=== PATIENT | male | born 1950 | race Caucasian/White ===

== ENCOUNTER → 2019-11-03 | Outpatient (CLI) | payer OTHER | LOC: GOCC 14:54 | PROVIDERS: ATTEND Internal Medicine | DX: R05 Cough (principal) ==

== ENCOUNTER 2020-01-02 18:33 | Emergency (ER) | payer OTHER ==
[2020-01-02] MEDS ORDERED: SODIUM CHLORIDE 0.9% 1000ML 1,000 ML IVS ONE (19:12)
[2020-01-02] MEDS ORDERED: PIPERACILLIN/TAZOBACTAM 3.375 GM in SODIUM CHLORIDE 0.9% 100ML 100 ML IVPB ONE (19:12)
[2020-01-02] MEDS ORDERED: ALBUTEROL SULFATE NEBS (ED DISPENSE) 2.5 MG/3 ML VIAL NEB PRN (19:12)
[2020-01-02] MEDS ORDERED: methylPREDNISolone SODIUM SUC 125 MG/2 ML VIAL IV ONE (19:12)
[2020-01-02] MEDS ORDERED: IPRATROPIUM BROMIDE NEBS 0.5 MG/2.5 ML VIAL NEB ONE (19:12)
--- NOTE | 2020-01-02 19:16 | ED.PDOC ---
History of Present Illness - General Time Seen by Provider: 01/02/20 19:02 Additional Information: Patient is a 6-year-old male who presents to the ED via EMS from a [facility] with chief complaint of generalized weakness. Patient has dementia and is weak in general but per EMS [facility] staff says he is more weak recently. By report patient has no fever or chills. Patient is not really able to contribute meaningfully to his history and history is otherwise unknown. - History of Present Illness Home Medications: Ambulatory Orders Acetaminophen [Tylenol] 650 mg PO Q6H #50 tab 01/02/20 Albuterol Inhaler [Ventolin Hfa Inhaler] 2 puff INH Q4H PRN #1 inh 01/02/20 Azithromycin [Zithromax Z-Pravin] 250 mg PO DAILY #6 tab 01/02/20 Review of Systems - Review of Systems Unable to Obtain Due To: dementia Family Medical History - Family History Mother Family History: Unknown Living Status: Unknown Physical Exam - Physical Exam General Appearance: Alert, Comfortable, Frail, Other - Generally weak Neck: supple Respiratory: chest non-tender, respiratory distress - Mild, rhonchi - Bilaterally, wheezing - Mild bilaterally Cardiovascular/Chest: normal peripheral pulses, no edema, no gallop, tachycardia, other - Regular rhythm Gastrointestinal/Abdominal: normal bowel sounds, non tender, soft Extremity: normal range of motion, non-tender, normal inspection 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 Confused but follows simple commands. Skin Exam: normal color, warm/dry Progress - Progress Progress: 01/02/20 19:17 Differential diagnosis includes but is not limited to sepsis, COVID, pneumonia, PE. 01/02/20 21:25 Patient reassessed and is much improved from his initial presentation. Patient is breathing easily, his heart rate is in the low 100s, and his O2 sat is 93 to 94% on room air. Patient's chest x-ray was read as clear but patient does have a low-grade fever and clinically I suspect pneumonia and possibly viral pneumonia from COVID. Cover test is pending. Patient has been covered with Zosyn in the ED and he is safe for discharge back to the [facility] on azithromycin and albuterol inhalers. Departure - Departure Clinical Impression: Pneumonia, unspecified organism, Suspected COVID-19 virus infection Time of Disposition: 21:29 Disposition: Discharge to SNF Condition: Fair Instructions: Pneumonia in Adults, Coronavirus Disease 2019 (COVID-19) Prescriptions: Acetaminophen [Tylenol] 650 mg PO Q6H #50 tab Albuterol Inhaler [Ventolin Hfa Inhaler] 2 puff INH Q4H PRN #1 inh PRN Reason: Shortness Of Breath/Wheezing Azithromycin [Zithromax Z-Pravin] 250 mg PO DAILY #6 tab Home Medications: Ambulatory Orders Acetaminophen [Tylenol] 650 mg PO Q6H #50 tab 01/02/20 Albuterol Inhaler [Ventolin Hfa Inhaler] 2 puff INH Q4H PRN #1 inh 01/02/20 Azithromycin [Zithromax Z-Pravin] 250 mg PO DAILY #6 tab 01/02/20
[2020-01-02] MEDS ORDERED: ALBUTEROL SULFATE 2.5 MG/3 ML VIAL NEB ONE (19:27)
--- NOTE | 2020-01-02 20:12 | RAD ---
EXAM DESCRIPTION: Chest,1 View CLINICAL HISTORY: 69 years Male, SOB COMPARISON: None. FINDINGS: No consolidation. No pneumothorax. No significant pleural effusion. Cardiomediastinal silhouette is unremarkable. There are age indeterminate fractures of posterolateral left ribs five through eight. Old left clavicle fracture noted. Degenerative changes of the spine noted. IMPRESSION: 1. No acute cardiopulmonary process. 2. Age-indeterminate left rib fractures. Electronically signed by: Derrick Espinoza MD 01/02/2020 8:11 PM CDT
[2020-01-03 03:43] VITALS: BP 151/74; TEMP 98.1; O2SAT 94
== END 2020-01-02 22:30 ==
LOC: ER 18:33
DX: J18.9 Pneumonia, unspecified organism (principal); R53.1 Weakness; F03.90 Unspecified dementia, unspecified severity, without behavioral disturbance, psychotic disturbance, mood disturbance, and anxiety
CPT/HCPCS: 36415; 71045; 80053; 83605; 84484; 85025; 85379; 87040; 94640; J2543; J2930; J7030; J7050; J7611; J7644; U0002

== ENCOUNTER 2020-01-03 18:56 | Inpatient (IN) | payer OTHER ==
--- NOTE | 2020-01-03 18:57 | HP ---
SUPERVISING PHYSICIAN: ABDELRAHMAN BURTON MD CHIEF COMPLAINT: Weakness, shortness of breath, fever. HISTORY OF PRESENT ILLNESS: Mr. Pollard is a 69 year-old male patient who resides at [facility]. He was brought to the Emergency Room initially on 01/28 with a chief complaint of generalized weakness. He denied any fever or chills. The patient has advanced dementia and is not able to contribute any meaningful history and otherwise does not tell us history medically the majority of the history of present illness obtained after Emergency Room record review and alf records. Initially in the Emergency Room on 01/01, his vital signs did show he was running a fever on initial admission at that time of 101, heart rate 118, oxygen saturation 88% on room air and is generally not 02 dependent. Initially laboratory studies at the time showed a white count of 5,000. Chest x-ray showed no acute cardiopulmonary process, age indeterminate left rib fractures. In the Emergency Room, he was tested for Covid-19 infection and was diagnosed with pneumonia but was found to be stable and was initially transported back to the alf. After a short time in the alf on the morning of 01/02, the patient was showing some evidence of desaturation, given the findings that he had in the Emergency Room and has pneumonia, he was sent back to the hospital after his testing came back that he was positive for Covid-19 for treatment of pneumonia related to Covid-19 infection. His workup at that time did show an elevated D-dimer at 2650 with initial D-dimer on 01/01 of 273. His chemistries showed a C-reactive protein elevated at 4.9, lactic acid 1.6. Electrolytes were all within normal limits. Creatinine 1.11. Troponin less than 0.02. X-ray at that time of direct admit from [facility] to the medical/surgical floor showed no acute cardiopulmonary process per radiology interpretation. Vital signs on admission at that time showed he was not running a fever but desaturation into the 80s on room air. He is now going to be admitted to the medical/surgical floor for treatment of pneumonia secondary to Covid-19, a viral infection. He was stable at time of admission. PAST MEDICAL HISTORY: 1. Dementia. 2. Bilateral blindness, etiology uncertain. Otherwise, history is not well known. PAST SURGICAL HISTORY: No surgeries listed other than an obvious colectomy with bag in place. Original reason for surgery not certain. CURRENT MEDICATIONS: 1. Zofran. 2. Multivitamin. 3. Robaxin. 4. Imodium. 5. Hydrocodone. 6. Gabapentin. 7. Colace. 8. Cymbalta. 9. Alphagan. 10. Lipitor. 11. Tylenol PM. 12. Albuterol inhaler. ALLERGIES: No known drug allergies. FAMILY HISTORY: Not known SOCIAL HISTORY: Resides at [facility]. No mention of tobacco or alcohol abuse. REVIEW OF SYSTEMS: Unobtainable due to patient's dementia. PHYSICAL EXAMINATION: VITAL SIGNS: Initial temperature in the Emergency Room showed he was febrile to 101 with pulse of 118, blood pressure 124/74, oxygen saturation 88% on room air with respirations 18. On direct admission to the medical/surgical floor he was afebrile with a temperature of 97.6, heart rate 108, blood pressure 118/52, oxygen saturation 88 to 90% on room air, 93% on the nasal cannula at 1 liter. GENERAL: Patient is frail looking but looks to be in no distress. He is alert, he can hold a conversation but does not provide pertinent information. HEENT: Tympanic membranes clear bilaterally. Oropharynx; pink and moist without lesions. Patient is blind bilaterally. NECK: Supple, non-tender, full range of motion, no jugular venous distention. CHEST: Sounds notable for mild rhonchi and bilateral wheezing, diminished towards the bases. CARDIOVASCULAR: Regular rate and rhythm, mildly tachycardiac on initial monitor. No murmurs, rubs, or gallops appreciated. ABDOMEN: Soft, non-tender, positive bowel sounds. Right sided colostomy bag with stoma appearing healthy, EXTREMITIES: Without edema. NEUROLOGIC: Cranial nerves II through XII appear to be grossly intact except for his vision as he is blind bilaterally. He is oriented to person but does not know time or place. He seems to be a little confused but he will follow basic simple commands. SKIN: Warm, pink and dry. LABORATORY: White count in the Emergency Room was 5,000, on admission to medical/surgical floor was 5,100, hemoglobin 12.1, hematocrit 36.8. Platelet count 269,000, differential showed a left shift. Coagulation studies initially in the Emergency Room showed a D-dimer at 273 on direct admission, repeat 2650. Chemistries initially in the Emergency Room showed normal electrolytes and on admission as well. Creatinine on admission 1.11, lactic acid 1.2 in the Emergency Room. Repeat on admission was 1.6. Liver functions all within normal limits except for an elevated alkaline phosphatase at 128. Initial C-reactive protein 4.9. There was not a C-reactive done in the Emergency Room. Urinalysis showed a small amount of blood with some microscopic RBCs of 10 to 20, No WBCs or bacteria. MICROBIOLOGY: Blood cultures were collected in the Emergency Room. They are currently negative. RADIOLOGY: Initial chest x-ray in the Emergency Room per radiology interpretation shows no acute cardiopulmonary process with age indeterminate left rib fractures. Repeat chest x-ray on admission shows no acute cardiopulmonary process identified. ASSESSMENT: 1. Covid-19 viral infection with fever, tachycardiac and requiring supplemental oxygenation with noted hypoxia on room air. 2. Concerns for community acquired pneumonia secondary to #1. 3. Sepsis secondary to #1. Other chronic illnesses not appreciated as patient is unable to provide any information and limited chart review. PLAN: Mr. Pollard is going to be admitted to the medical/surgical floor for airborne isolation and treatment of Covid-19 infection with concerns for developing worsening symptoms. He did show elevation on initial admission of his D-dimer as well as his C-reactive protein. He is requiring supplemental 02 which normally he does not wear 02, that is showing to be stable. We will go ahead and start him on azithromycin and Rocephin for questionable pneumonia with Decadron 6 mg daily for treatment of the symptoms related to Covid-19 and follow his inflammatory markers. I anticipate length of stay to be at least 2 to 3 days until we can see that he is no longer requiring additional supplemental oxygen and his inflammatory markers are showing a trend to baseline levels. Until we can transition him to outpatient management back to [facility], we will continue to monitor and treat as needed #[id number] MTDD
[2020-01-03] MEDS ORDERED: SODIUM CHLORIDE 0.9% (FLUSH) 10 ML SYG IV PRN (19:39)
[2020-01-03] MEDS ORDERED: MAGNESIUM HYDROXIDE 30 ML UD PO PRN (19:39)
[2020-01-03] MEDS ORDERED: IBUPROFEN 400 MG TAB PO PRN (19:39)
[2020-01-03] MEDS ORDERED: ALBUTEROL INHALER 64 PUFF/8GM INH PRN (19:44)
[2020-01-03] MEDS ORDERED: AZITHROMYCIN IV 500 MG in SODIUM CHLORIDE 0.9% 250ML 250 ML IVPB SCH (20:00)
[2020-01-03] MEDS ORDERED: AZITHROMYCIN IV 500 MG VIAL IVPB ONE (20:09)
[2020-01-03] MEDS ORDERED: cefTRIAXone SODIUM 1 GM VIAL ONE (20:09)
[2020-01-03] MEDS ORDERED: SODIUM CHLORIDE 0.9% 250ML 250 ML ONE (20:10)
[2020-01-03] MEDS ORDERED: SODIUM CHL 0.9% 50ML MIN-BAG+ 50 ML IVPB ONE (20:10)
[2020-01-03] MEDS: ALBUTEROL INHALER 64 PUFF/8GM INH SCH (20:15)
--- NOTE | 2020-01-03 20:16 | RAD ---
EXAM: XR Chest, 1 View CLINICAL HISTORY: The patient is 69 years old and is Male; Pneumonia TECHNIQUE: Single view of the chest. COMPARISON: January 02, 2020 7:52 PM. FINDINGS: Lungs: Unremarkable. No consolidation. Pleural space: Unremarkable. No pneumothorax. Heart: Unremarkable. No cardiomegaly. Mediastinum: Unremarkable. Bones/joints: The bones and joints are unchanged as visualized. Upper abdomen: No free air in the visualized upper abdomen. IMPRESSION: No acute cardiopulmonary process identified. Electronically signed by: Korin Souza MD 01/03/2020 8:14 PM CDT
[2020-01-03] MEDS: DEXAMETHASONE INJ 10 MG/ML VIAL IV SCH (20:30)
[2020-01-03] MEDS: ATORVASTATIN 20 MG TAB PO SCH (20:30)
[2020-01-03] MEDS: DOCUSATE SODIUM 100 MG CAP PO SCH (20:30)
[2020-01-03] MEDS: GABAPENTIN 300 MG CAP PO SCH (20:30)
[2020-01-03] MEDS: IV SET AND CAP CHANGE INJ INJ SCH (20:35)
[2020-01-03] MEDS: cefTRIAXone SODIUM 1 GM in SODIUM CHL 0.9% 50ML MIN-BAG+ 50 ML IVPB SCH (20:35)
[2020-01-03] MEDS: ENOXAPARIN SODIUM 40 MG/0.4 ML SYG SUBCU SCH (21:00)
[2020-01-03] MEDS: BRIMONIDINE 0.2% OPHTH DROPS BOTH_EYES SCH (22:15)
[2020-01-03] MEDS: ONDANSETRON INJ 4 MG/2 ML VIAL IV PRN (23:00)
[2020-01-04] MEDS: ACETAMINOPHEN 325 MG TAB PO PRN (04:11)
[2020-01-04] MEDS ORDERED: ALUMINUM & MAGNESIUM HYDROXIDE 30 ML UD PO PRN (04:56)
[2020-01-04] MEDS: PANTOPRAZOLE SODIUM IV 40 MG VIAL IV SCH (05:59)
[2020-01-04] MEDS: ONDANSETRON INJ 4 MG/2 ML VIAL IV PRN (06:20)
--- NOTE | 2020-01-04 07:08 | RAD ---
EXAMINATION: Chest x-ray one view. INDICATION: Pneumonia COMPARISON: 01/03/2020 TECHNIQUE: Frontal radiograph chest. FINDINGS: The cardiac silhouette is normal in size. No focal consolidative process or pulmonary edema. There is no pneumothorax. IMPRESSION: No acute pulmonary findings. No change in aeration from prior study. Electronically signed by: Jen Carbajal MD 01/04/2020 7:06 AM CDT
[2020-01-04] MEDS ORDERED: DEXAMETHASONE INJ 4 MG/ML VIAL ONE (07:10)
[2020-01-04] MEDS: ALBUTEROL INHALER 64 PUFF/8GM INH SCH ×4 (08:30→20:00)
[2020-01-04] MEDS: DOCUSATE SODIUM 100 MG CAP PO SCH ×2 (08:33→20:25)
[2020-01-04] MEDS: BRIMONIDINE 0.2% OPHTH DROPS BOTH_EYES SCH ×3 (08:33→20:25)
[2020-01-04] MEDS: DULoxetine HCL 30 MG CAP PO SCH (08:33)
[2020-01-04] MEDS: GABAPENTIN 300 MG CAP PO SCH ×2 (08:33→20:25)
[2020-01-04] MEDS: DEXAMETHASONE INJ 10 MG/ML VIAL IV SCH (08:39)
[2020-01-04] MEDS ORDERED: AZITHROMYCIN IV 500 MG VIAL IVPB ONE (19:29)
[2020-01-04] MEDS ORDERED: SODIUM CHLORIDE 0.9% 250ML 250 ML ONE (19:29)
[2020-01-04] MEDS: cefTRIAXone SODIUM 1 GM in SODIUM CHL 0.9% 50ML MIN-BAG+ 50 ML IVPB SCH (19:34)
[2020-01-04] MEDS: ATORVASTATIN 20 MG TAB PO SCH (20:25)
[2020-01-04] MEDS: ENOXAPARIN SODIUM 40 MG/0.4 ML SYG SUBCU SCH (20:25)
[2020-01-04] MEDS: AZITHROMYCIN IV 500 MG in SODIUM CHLORIDE 0.9% 250ML 250 ML IVPB SCH (20:25)
[2020-01-05] MEDS: PANTOPRAZOLE SODIUM IV 40 MG VIAL IV SCH (05:46)
[2020-01-05] MEDS: ALBUTEROL INHALER 64 PUFF/8GM INH SCH ×4 (08:00→20:00)
--- NOTE | 2020-01-05 08:03 | PN ---
SUPERVISING PHYSICIAN: Iker Meehan MD DATE: 01/04/20 SUBJECTIVE: The patient is doing well. He is requiring a little bit of oxygen, but low flow. Otherwise, he has not been febrile since admission. He is not showing any signs of distress and his laboratory studies as far as his inflammatory markers are showing good response to treatment and trending down. OBJECTIVE: VITAL SIGNS: Temperature 98.7, pulse 72, blood pressure 116/75, respirations 16, saturation 93% to 94% on 1 liter nasal cannula. GENERAL: The patient is resting comfortably, does not appear to be in any acute distress. CHEST: Lungs are clearer today than yesterday. No obvious wheezing or rhonchi. They are diminished towards the bases bilaterally. No rales are noted. HEART: Regular rate and rhythm. ABDOMEN: Soft with colostomy bag in place on the right side. The stoma is healthy appearing with stool to be normal in consistency. No blood. EXTREMITIES: No edema. NEUROLOGIC: He is alert to himself. He knows he is in the hospital. Otherwise, he does not have a whole lot of information to offer, but will follow commands and is very pleasant. No obvious deficits are noted other than his chronic blindness. SKIN: Warm, pink and dry. LABORATORY: White count 7,700, hemoglobin stable at 12.3, hematocrit 37.2, platelet count 260,000. Differential shows a left shift. Coagulation studies show D-dimer down from 2650 to 320. Chemistries show normal electrolytes with BUN 19, creatinine 1.08, ferritin 21.6, C-reactive protein 4.0 which is down from 4.9. RADIOLOGY: Chest x-ray per radiologic interpretation shows no acute pulmonary findings, no changes in aeration from previous exam. ASSESSMENT: 1. COVID-19 viral infection with fever, tachycardiac and requiring supplemental oxygenation with noted hypoxia on room air. 2. Concerns for community acquired pneumonia secondary to #1. 3. Sepsis secondary to #1. 4. Right sided colostomy. PLAN: We will continue current plan at this point with Decadron, Rocephin, azithromycin, oxygen as needed and aggressive pulmonary hygiene. We will continue to follow D-dimer, C-reactive protein. I would anticipate if those keep showing trends to baseline levels that we will be able to discharge in the next 24 to 48 hours. We will need to notify Dr. Jack of the patient's condition as well and Dr. Chamberlain from standpoint of discharge given that he is one of two patients in [facility] that has been positive for COVID-19 within the last week. Until then, we will continue to monitor and treat as needed. #[id number] [facility]
[2020-01-05] MEDS: BRIMONIDINE 0.2% OPHTH DROPS BOTH_EYES SCH ×3 (08:12→20:17)
[2020-01-05] MEDS: DOCUSATE SODIUM 100 MG CAP PO SCH ×2 (08:12→20:17)
[2020-01-05] MEDS: DULoxetine HCL 30 MG CAP PO SCH (08:12)
[2020-01-05] MEDS: ACETAMINOPHEN 325 MG TAB PO PRN (08:12)
[2020-01-05] MEDS: GABAPENTIN 300 MG CAP PO SCH ×2 (08:13→20:17)
[2020-01-05] MEDS: DEXAMETHASONE INJ 10 MG/ML VIAL IV SCH (08:13)
--- NOTE | 2020-01-05 15:46 | PN ---
SUPERVISING PHYSICIAN: Arden Chamberlain MD DATE: 01/05/20 SUBJECTIVE: The patient is sitting up on the side of the bed. He has no complaints. I discussed with him that we would be leaving him in the hospital for the next few days to prevent any further spread of his virus. He voiced understanding. He denies chest pain, nausea or vomiting. He is still wearing oxygen in his room and we will try to titrate him off of that. OBJECTIVE: VITAL SIGNS: Temperature 97.8, heart rate 64, blood pressure 163/83, respiratory rate 18, oxygen saturation 94% on 1 liter nasal cannula. RESPIRATORY: Diminished breath sounds throughout, otherwise clear to auscultation. CARDIAC: Regular rate and rhythm. GI: Abdomen soft, nondistended, non-tender. Bowel sounds are positive. NEUROLOGICAL: He is awake, alert, and oriented x3. LABORATORY: Hemoglobin 10.4, hematocrit 33.8, WBC 4,600, D-dimer 157. Electrolytes are basically within normal limits. Calcium slightly low at 8.1. Ferritin 20.3, C-reactive protein has gone up and it is 4.2. All other labs and films have been reviewed via the EMR. ASSESSMENT: 1. Covid-19 viral infection with fever, tachycardia and requiring supplemental oxygenation with noted hypoxia on room air. 2. Concerns for community acquired pneumonia secondary to #1. 3. Sepsis secondary to #1. 4. Right-sided colostomy. PLAN: We will continue current supportive care including his Decadron, Rocephin and azithromycin, will titrate him oxygen as he tolerates it. I have ordered labs including a D-dimer and CRP for tomorrow. I will also order a chest x-ray. At this point, we will be keeping the patient in the hospital for a day or so more due to the increased risk of infection at a long-term care facility and continue close monitoring of the patient. He will be off oxygen before he can be discharged so we will start to titrate that off. His inflammatory markers also need to be consistently decreasing and his CRP has elevated overnight. We will continue to monitor closely and follow as needed. #[id number] #[id number] [facility]
[2020-01-05] MEDS: cefTRIAXone SODIUM 1 GM in SODIUM CHL 0.9% 50ML MIN-BAG+ 50 ML IVPB SCH (19:36)
[2020-01-05] MEDS: ATORVASTATIN 20 MG TAB PO SCH (20:17)
[2020-01-05] MEDS: AZITHROMYCIN IV 500 MG in SODIUM CHLORIDE 0.9% 250ML 250 ML IVPB SCH (20:17)
[2020-01-05] MEDS: ENOXAPARIN SODIUM 40 MG/0.4 ML SYG SUBCU SCH (20:17)
[2020-01-06] MEDS ORDERED: PANTOPRAZOLE SODIUM TAB 40 MG PO ONE (02:10)
[2020-01-06] MEDS: PANTOPRAZOLE SODIUM TAB 40 MG PO SCH (06:24)
--- NOTE | 2020-01-06 07:06 | RAD ---
Exam(s): XR CHEST 1 VIEW: 01/06/2020 5:00 AM CDT Indication: covid19 MAIN Comparison Study Date: 01/04/2020 Technique: AP chest radiograph. Findings: The lungs remain clear. No airspace abnormality is identified. No pleural effusion or pneumothorax. There is elevation of the right hemidiaphragm relative to the left. This finding is unchanged. Heart size is normal. No mediastinal adenopathy is identified. There are chronic healed left-sided rib fractures. IMPRESSION: No cardiopulmonary abnormality is identified. No change from prior radiograph. Electronically signed by: Raj Medrano MD 01/06/2020 7:05 AM CDT
[2020-01-06] MEDS: ALBUTEROL INHALER 64 PUFF/8GM INH SCH ×4 (08:00→20:00)
[2020-01-06] MEDS: GABAPENTIN 300 MG CAP PO SCH ×2 (08:38→20:55)
[2020-01-06] MEDS: DOCUSATE SODIUM 100 MG CAP PO SCH ×2 (08:38→20:55)
[2020-01-06] MEDS: DULoxetine HCL 30 MG CAP PO SCH (08:38)
[2020-01-06] MEDS: DEXAMETHASONE INJ 10 MG/ML VIAL IV SCH (08:38)
[2020-01-06] MEDS: BRIMONIDINE 0.2% OPHTH DROPS BOTH_EYES SCH ×3 (08:41→20:55)
[2020-01-06] MEDS ORDERED: POTASSIUM CHLORIDE 20 MEQ TAB PO ONE (10:37)
[2020-01-06] MEDS: cefTRIAXone SODIUM 1 GM in SODIUM CHL 0.9% 50ML MIN-BAG+ 50 ML IVPB SCH (19:52)
[2020-01-06] MEDS: IV SET AND CAP CHANGE INJ INJ SCH (19:52)
[2020-01-06] MEDS: AZITHROMYCIN IV 500 MG in SODIUM CHLORIDE 0.9% 250ML 250 ML IVPB SCH (20:55)
[2020-01-06] MEDS: ENOXAPARIN SODIUM 40 MG/0.4 ML SYG SUBCU SCH (20:55)
[2020-01-06] MEDS: ATORVASTATIN 20 MG TAB PO SCH (20:55)
[2020-01-07] MEDS: PANTOPRAZOLE SODIUM TAB 40 MG PO SCH (06:02)
--- NOTE | 2020-01-07 08:31 | PN ---
SUPERVISING PHYSICIAN: Arden Chamberlain MD DATE: 01/06/20 SUBJECTIVE: The patient is sitting up in bed. He says he feels better than yesterday but he still gets short of breath with exertion. He denies chest pain, nausea or vomiting. OBJECTIVE: VITAL SIGNS: Temperature 97.9, heart rate 86, blood pressure 143/77, respiratory rate 18, oxygen saturation 91% on room air. RESPIRATORY: Diminished at the bases. No wheezing or rhonchi noted. . CARDIAC: Regular rate and rhythm. GI: Abdomen soft, nondistended, non-tender. Bowel sounds are positive. NEUROLOGICAL: He is awake, alert, and oriented x3. LABORATORY: D-dimer is 149. Potassium 3.4, BUN 20, creatinine 0.94, ferritin 27.5. C-reactive protein 1.9. Liver enzymes are within normal limits. Covid- 19 testing is again positive. Chest x-ray shows no cardiopulmonary abnormalities identified. No change from prior radiograph. All other labs and films have been reviewed via the EMR. ASSESSMENT: 1. Covid-19 viral infection with fever, tachycardia requiring supplemental oxygenation with noted hypoxia on room air. Condition is improving. 2. Concerns for community acquired pneumonia secondary to #1. 3. Sepsis secondary to #1. 4. Right-sided colostomy. PLAN: We will continue present supportive care including his Decadron, Rocephin and azithromycin. I will hold on the chest x-ray for tomorrow but I have ordered labs including D-dimer and CRP for tomorrow. He did receive some potassium supplementation. I have encouraged good pulmonary hygiene. We will continue to monitor closely and follow as needed. #[id number] MTDD
[2020-01-07] MEDS: GABAPENTIN 300 MG CAP PO SCH ×2 (08:32→20:30)
[2020-01-07] MEDS: DULoxetine HCL 30 MG CAP PO SCH (08:32)
[2020-01-07] MEDS: BRIMONIDINE 0.2% OPHTH DROPS BOTH_EYES SCH ×3 (08:32→20:31)
[2020-01-07] MEDS: DOCUSATE SODIUM 100 MG CAP PO SCH ×2 (08:32→20:30)
[2020-01-07] MEDS: DEXAMETHASONE INJ 10 MG/ML VIAL IV SCH (08:32)
[2020-01-07] MEDS: ALBUTEROL INHALER 64 PUFF/8GM INH SCH ×4 (09:06→20:30)
[2020-01-07] MEDS ORDERED: POTASSIUM CHLORIDE 20 MEQ TAB PO ONE (10:52)
--- NOTE | 2020-01-07 15:34 | PN ---
SUPERVISING PHYSICIAN: Arden Chamberlain M.D. DATE: 01/07/20 SUBJECTIVE: The patient is lying in bed. He has no complaints of shortness of breath, nausea or vomiting. He most likely would be ready for discharge today but the halfway has not completed their COVID haul as yet and he will most likely be discharged in the morning. The patient voiced understanding. OBJECTIVE: VITAL SIGNS: Temperature 98.3, heart rate 78, blood pressure 143/79, respiratory rate 18, O2 saturation 97% on room air. RESPIRATORY: Essentially clear to auscultation bilaterally. He is somewhat diminished at the bases. CARDIAC: Regular rate and rhythm. NEUROLOGIC: He is awake, alert and oriented times three. LABORATORY: WBCs are 3 with hemoglobin and hematocrit that are stable at 10.9 and 32.9. There is no left shift on his differential. D-dimer is 31. Electrolytes are basically within normal limits, except his calcium is slightly low at 7.8, potassium is low at 3.5. C reactive protein is pending. All other labs and films have been reviewed via the EMR. ASSESSMENT: 1. Covid-19 viral infection with fever, tachycardia and requiring supplemental oxygenation with noted hypoxia on room air. 2. Concerns for community acquired pneumonia secondary to #1. 3. Sepsis secondary to #1. 4. Right-sided colostomy. PLAN: We will continue present supportive care. He should be discharged tomorrow to [facility]. Will hold off on any lab or x-rays for now as he is stabilized. He will need to go home on Eliquis for 30 days as well as Cefdinir and Decadron for 10 days. Those orders have been written and expect for discharge tomorrow. He did receive some K-Dur supplementation. Will continue to monitor closely and follow as needed. #[id number] MTDD
[2020-01-07] MEDS: cefTRIAXone SODIUM 1 GM in SODIUM CHL 0.9% 50ML MIN-BAG+ 50 ML IVPB SCH (20:29)
[2020-01-07] MEDS: ATORVASTATIN 20 MG TAB PO SCH (20:30)
[2020-01-07] MEDS: ENOXAPARIN SODIUM 40 MG/0.4 ML SYG SUBCU SCH (20:30)
[2020-01-07] MEDS: AZITHROMYCIN IV 500 MG in SODIUM CHLORIDE 0.9% 250ML 250 ML IVPB SCH (21:17)
[2020-01-08] MEDS: PANTOPRAZOLE SODIUM TAB 40 MG PO SCH (06:03)
[2020-01-08] MEDS: ALBUTEROL INHALER 64 PUFF/8GM INH SCH ×2 (08:25→12:15)
[2020-01-08] MEDS: DULoxetine HCL 30 MG CAP PO SCH (10:00)
[2020-01-08] MEDS: GABAPENTIN 300 MG CAP PO SCH (10:00)
[2020-01-08] MEDS: BRIMONIDINE 0.2% OPHTH DROPS BOTH_EYES SCH (10:00)
[2020-01-08] MEDS: DEXAMETHASONE INJ 10 MG/ML VIAL IV SCH (10:01)
[2020-01-08] MEDS: DOCUSATE SODIUM 100 MG CAP PO SCH (10:01)
[2020-01-08 13:38] VITALS: BP 121/70; TEMP 98.4; O2SAT 94
--- NOTE | 2020-01-23 14:29 | DS ---
SUPERVISING PHYSICIAN: Mg Chamberlain MD DISCHARGE DIAGNOSIS: 1. COVID-19 viral infection with fever, tachycardia and requiring supplemental oxygenation with noted hypoxia on room air. 2. Concerns for community acquired pneumonia secondary to #1. 3. Sepsis secondary to #1. 4. Right-sided colostomy. HISTORY OF PRESENT ILLNESS: This is a 69-year-old male patient who lives at [facility]. He came to the Emergency Room with a chief complaint of generalized weakness. He denied any fever or chills. The patient has advanced dementia and the majority of his history was obtained from his EMR. His vital signs a fever of 101, heart rate 118, oxygen saturation 88% on room air. He is normally not oxygen dependent at [facility]. He had a white count of 5,000. Chest x-ray showed no acute cardiopulmonary process as well as age indeterminate left rib fractures. [facility] and then on 01/03/20, he again showed some desaturations. He came to the ER and was found to have pneumonia as well as he was positive for COVID-19. His D-dimer was 2650 with his initial D-dimer of 273. C-reactive protein was elevated at 4.9, lactic acid 1.6. Electrolytes were within normal limits. Creatinine 1.11. Troponin less than 0.02. Second x-rays showed no acute cardiopulmonary process. In the ER the second time, he was not running a fever, but his O2 saturations were in the mid 80s on room air. He was admitted to the Medical/Surgical Floor for treatment of pneumonia secondary to COVID-19. He was admitted in stable condition. HOSPITAL COURSE: He was placed on supplemental oxygen as well as azithromycin and Rocephin. The pneumonia guidelines were followed. He was also put on Decadron 6 mg daily and his inflammatory markers were monitored closely. His oxygen was slowly titrated off. He showed no fever during his stay. We continued with good pulmonary hygiene. He did receive potassium supplementation due to low potassium. They did open a COVID-19 isolation barton at [facility] and as he is stabilized from an Acute Care perspective, he will be discharged back to [facility]. LABORATORY: WBC ran between 3,000 and 7,700 with stable hemoglobin and hematocrit of 10.9 and 32.9. Platelet count was stable at 177. His absolute lymphocytes were low at 0.5 and 15.5%. D-dimer on admission was 2,750 and on discharge it was 231. Electrolytes showed a stable sodium of 140, potassium tended to be on the low side at 3.4 and today is 3.5 and has required potassium supplementation. BUN and creatinine have stabilized at 21 and 1.04. Calcium was low at 7.9. C-reactive protein started at 4.9 and has come down to as low as 1.9 and today is 2.6. Urinalysis was unremarkable. RADIOLOGY: His final chest x-ray showed no cardiopulmonary abnormality identified. DISCHARGE PLAN: The patient will be discharged back to [facility] in good condition. He will be placed on the isolation floor as their policy dictates. He is to increase activity as tolerated. He is to followup with his primary care physician, Dr. Ramos, within the next one to two weeks. In addition to his routine medications, he will also be discharged on cefdinir 300 mg b.i.d. for 8 days, dexamethasone, Eliquis for 30 days and azithromycin for 5 days. He is to return to the hospital or followup with Dr. Ramos for any problems or complications. DISCHARGE MEDICATIONS: 1. Tylenol #2. 2. Ventolin inhaler. 3. Acetaminophen. 4. Robaxin. 5. Imodium. 6. Alphagan ophthalmic drops. 7. Gabapentin. 8. Multivitamin. 9. Docusate sodium. 10. Duloxetine. 11. Lipitor. 12. Zofran. 13. Eliquis for 30 days. 14. Azithromycin for 5 days. 15. Cefdinir for 8 days. 16. Decadron for 10 days. #[id number] [facility]
== END 2020-01-08 13:30 | DRG 871 ==
LOC: OBSVTOIN 18:56 → MS 18:56
PROVIDERS: ADMIT Nurse Practitioner Family; ATTEND Nurse Practitioner Acute Care
DX: A41.89 Other specified sepsis (principal); U07.1 COVID-19; J12.89 Other viral pneumonia; R09.02 Hypoxemia; F03.90 Unspecified dementia, unspecified severity, without behavioral disturbance, psychotic disturbance, mood disturbance, and anxiety; H54.7 Unspecified visual loss; Z66 Do not resuscitate; Z79.891 Long term (current) use of opiate analgesic; Z79.899 Other long term (current) drug therapy; Z93.3 Colostomy status

== ENCOUNTER 2020-04-24 00:15 | Emergency (ER) | payer OTHER ==
--- NOTE | 2020-04-24 00:28 | ED.PDOC ---
History of Present Illness - General Time Seen by Provider: 04/24/20 00:18 Information Source: patient, RN notes reviewed, Vital Signs reviewed, EMS notes reviewed, retirement records, old records Exam Limitations: no limitations - History of Present Illness Initial Comments: 69 yo male presents from retirement with the c/c of rectal bleeding. Started several months ago. Today he noted dark blood in his stoma so came in for evaluation. Was trying to schedule an appointment with GI, but is pending a negative covid test. Has a known gastrointestinal fistula. He is unsure if he is on blood thinners. Does have eliquis on his med list from prior visits. Hx of crohns. Review of Systems - Review of Systems Constitutional: Denies: chills, fever EENTM: Denies: blurred vision, ear pain Respiratory: Denies: cough, short of breath Cardiology: Denies: chest pain, palpitations Gastrointestinal/Abdominal: Denies: abdominal pain, constipation, diarrhea, nausea, vomiting Genitourinary: Denies: frequency, hematuria Musculoskeletal: Denies: joint swelling, muscle pain Neurological: Denies: headache, numbness, paresthesia Endocrine: Denies: unexplained weight gain, unexplained weight loss Hematologic/Lymphatic: Denies: blood clots, easy bleeding, easy bruising Past Medical History (General) - Patient Medical History Hx Seizures: No Hx Stroke: No Hx Dementia: No Hx Asthma: No Hx of COPD: No Hx Cardiac Disorders: No Hx Congestive Heart Failure: No Hx Pacemaker: No Hx Hypertension: No Hx Thyroid Disease: No Hx Diabetes: No Hx Gastroesophageal Reflux: No Hx Renal Disease: No Hx Cancer: No Hx of HIV: No Hx Hepatitis C: No Hx MRSA: No - Social History Hx Tobacco Use: No Hx Chewing Tobacco Use: No Hx Alcohol Use: No Hx Substance Use: No Hx Substance Use Treatment: No Hx Depression: No Hx Physical Abuse: No Hx Emotional Abuse: No Hx Suspected Abuse: No Family Medical History - Family History Mother Family History: Unknown Living Status: Hx Family Cancer: Yes - breast cancer Father Living Status: Hx Family Hypertension: Yes Hx Family Stroke: Yes Physical Exam - Physical Exam General Appearance: Alert, Comfortable, No apparent distress, Well Developed, Well Groomed, Well Hydrated, Well Nourished Eyes, Ears, Nose, Throat Exam: normal ENT inspection, other - dyscoria Neck: non-tender, full range of motion, supple, normal inspection Respiratory: chest non-tender, lungs clear, normal breath sounds, no respiratory distress, no accessory muscle use Cardiovascular/Chest: normal peripheral pulses, regular rate, rhythm, no edema, no gallop, no JVD, no murmur Peripheral Pulses: 2+ Gastrointestinal/Abdominal: normal bowel sounds, non tender, soft, no organomegaly, no pulsatile mass, other - stoma with mild dark-red watery output. Rectal Exam: normal exam, normal rectal tone, heme positive stool Back Exam: normal inspection, no CVA tenderness, no vertebral tenderness Extremity: normal range of motion, non-tender, normal inspection, no calf tenderness, normal capillary refill Neurologic: no motor/sensory deficits, alert, normal mood/affect Skin Exam: normal color, warm/dry Progress - Progress Progress: 04/24/20 01:37 [place] [facility] score 17 [place] Bleeding Score 1 04/24/20 01:39 CT abd/pelvis: Right upper quadrant colostomy with decompressed entering and exiting loops of transverse colon slightly limiting evaluation. Cluster of mildly thickened small bowel loops right lower quadrant - probable mild focal enteritis. Hazy mesentery mid abdomen - chronic finding versus mild mesenteric panniculitis. Prominent prostate. Chronic osseous findings as described in body of the report. Due to the history of crohns disease will give steroids for inflammation to possibly help with bleed. No pain, I do not suspect infection at this time. Aorta appears intact, no evidence of aortenteric fistula at this time. The data reviewed when caring for this patient included: nurse notes, prior records, etc. The history and assessments from nurses notes were reviewed and considered, and the patient's home medication list was also reviewed and considered. My assessment and the results of testing completed here in the ED were discussed with the patient. All questions were answered, and they express understanding of my assessment and the plan. They have been instructed to return if their symptoms worsen, and have been asked to follow up with their primary care physician and GI to recheck today's presenting complaint. Strict return precautions given. I have reviewed medication, benefits, alternatives and side effects. Patient decided to proceed with medication.VSS, patient discharged to retirement in stable condition. Radha Marie DO #[id number] 04/24/20 02:09 - Results/Orders Results/Orders: 04/24/20 00:37 Hold Metformin x 48Hrs [id number] 04/24/20 01:00 URINALYSIS Stat Laboratory Results WBC 5.7 K/mm3 (4.8-10.8) 04/24/20 00:20 RBC 4.21 M/mm3 (4.70-6.10) L 04/24/20 00:20 Hgb 12.8 gm/dL (14.0-18.0) L 04/24/20 00:20 Hct 38.4 % (42.0-52.0) L 04/24/20 00:20 MCV 91.2 fl (80.0-94.0) 04/24/20 00:20 MCH 30.3 pg (27.0-31.0) 04/24/20 00:20 MCHC 33.3 g/dL (33.0-37.0) 04/24/20 00:20 RDW 15.0 % (11.5-14.5) H 04/24/20 00:20 Plt Count 248 K/mm3 (130-400) 04/24/20 00:20 MPV 9.8 fl (7.40-10.4) 04/24/20 00:20 Absolute Neuts (auto) 2.80 K/uL (1.8-6.8) 04/24/20 00:20 Absolute Lymphs (auto) 1.30 K/uL (1.0-3.4) 04/24/20 00:20 Absolute Monos (auto) 0.50 K/uL (0.2-0.8) 04/24/20 00:20 Absolute Eos (auto) 1.00 K/uL (0.0-0.4) H 04/24/20 00:20 Absolute Basos (auto) 0.10 K/uL (0.0-0.1) 04/24/20 00:20 Neutrophils % 49.1 % (42.0-78.0) 04/24/20 00:20 Lymphocytes % 22.8 % (20.0-50.0) 04/24/20 00:20 Monocytes % 9.3 % (2.0-9.0) H 04/24/20 00:20 Eosinophils % 17.6 % (1.0-5.0) H 04/24/20 00:20 Basophils % 1.2 % (0.0-2.0) 04/24/20 00:20 PT 10.0 SECONDS (9.0-10.9) 04/24/20 00:20 INR 1.01 (0.9-1.15) 04/24/20 00:20 PTT (SP) 20.1 SECONDS (21.8-31.6) L 04/24/20 00:20 Sodium 143 mmol/L (135-145) 04/24/20 00:20 Potassium 3.8 mmol/L (3.6-5.0) 04/24/20 00:20 Chloride 106 mmol/L (101-111) 04/24/20 00:20 Carbon Dioxide 28 mmol/L (21-31) 04/24/20 00:20 Anion Gap 12.8 (12-18) 04/24/20 00:20 BUN 8 mg/dL (7-18) 04/24/20 00:20 Creatinine 1.03 mg/dL (0.6-1.3) 04/24/20 00:20 BUN/Creatinine Ratio 7.8 (10-20) L 04/24/20 00:20 Random Glucose 93 mg/dL (70-105) 04/24/20 00:20 Serum Osmolality 283.0 mOsm/L (275-295) 04/24/20 00:20 Calcium 8.3 mg/dL (8.4-10.2) L 04/24/20 00:20 Total Bilirubin 0.4 mg/dL (0.2-1.0) 04/24/20 00:20 AST 16 IU/L (10-42) 04/24/20 00:20 ALT 13 IU/L (10-60) 04/24/20 00:20 Alkaline Phosphatase 139 IU/L (42-121) H 04/24/20 00:20 Serum Total Protein 6.4 gm/dL (6.4-8.2) 04/24/20 00:20 Albumin 3.1 g/dl (3.2-5.5) L 04/24/20 00:20 Globulin 3.3 gm/dL (2.3-3.5) 04/24/20 00:20 Albumin/Globulin Ratio 0.9 (1.1-1.9) L 10/24/20 00:20 Stool Occult Blood Positive (NEGATIVE) H 04/24/20 00:30 Departure - Departure Clinical Impression: Fistula GI bleed Qualifiers: GI bleed type/associated pathology: unspecified gastrointestinal hemorrhage type Qualified Code(s): K92.2 - Gastrointestinal hemorrhage, unspecified Time of Disposition: 01:45 Disposition: Discharge to SNF Instructions: Gastrointestinal Bleeding (DC), Enterocutaneous Fistula (DC) Referrals: TRACEY CASTELLON [Primary Care Provider] - 1-2 Days PRESTON PORTILLO MD [Consulting Staff] - 1-2 Days BRAD TSANG MD [Physicians] - 1-2 Days Prescriptions: Ferrous Sulfate 325 mg PO DAILY #30 tab Home Medications: Ambulatory Orders Acetaminophen [Tylenol] 650 mg PO Q6H #50 tab 01/02/20 Albuterol Inhaler [Ventolin Hfa Inhaler] 2 puff INH Q4H PRN #1 inh 01/02/20 Atorvastatin Calcium [Lipitor] 20 mg PO BEDTIME 01/03/20 Docusate Sodium [Colace] 100 mg PO BID 01/03/20 Gabapentin 300 mg PO BID 01/03/20 Loperamide Cap [Imodium Cap] 2 mg PO PRN 01/03/20 Methocarbamol [Robaxin] 1,000 mg PO Q6HRS PRN 01/03/20 Multiple Vitamin [Multi Vitamin] 1 tab PO DAILY 01/03/20 Ondansetron HCl [Zofran] 4 mg PO Q6HR PRN 01/03/20 Ferrous Sulfate 325 mg PO DAILY #30 tab 04/24/20
[2020-04-24] MEDS ORDERED: SODIUM CHLORIDE 0.9% 500ML 500 ML IVS ONE (01:16)
--- NOTE | 2020-04-24 01:57 | CT ---
CT abdomen and pelvis with contrast TECHNIQUE: Axial images were taken through the abdomen and pelvis after the administration of IV and oral contrast.All CT scans at this facility use dose modulation, iterative reconstruction, and/or weight based dosing when appropriate to reduce radiation dose to as low as reasonably achievable HISTORY: GI fistula/bleed COMPARISON:None FINDINGS: Lung bases: The lung bases appear unremarkable. ABDOMEN: The liver appears unremarkable. There is no evidence for mass or intrahepatic biliary ductal dilatation. The adrenal glands, pancreas and spleen are normal. The kidneys appear unremarkable. There is a right upper quadrant colostomy. The entering and exiting loops of the transverse colon appear mildly thickened at least partially due to decompression. Superimposed mild inflammatory changes not completely excluded. There is a small amount of stranding in the adjacent fat at least partially postoperative although early developing inflammatory changes not completely excluded. The descending and sigmoid colon are decompressed. There is a small amount of haziness in the mesentery of the mid abdomen (images 40 through 55) with a few small scattered lymph nodes. This may represent a chronic finding although a mesenteric panniculitis would also be possible. In the right pelvis, there are a few thickened small bowel loops (images 68 through 72) likely representing mild focal enteritis.. There is no evidence for acute appendicitis. Pelvis: The aorta is normal in caliber. There is no evidence for pathologically enlarged adenopathy. The bladder appears unremarkable. There is no free air or free fluid The prostate is prominent. Recommend correlation with PSA level. There are degenerative changes in the osseous structures with osteophyte formation in the vertebral column. Old posterior lateral left rib fractures noted. Impression: Right upper quadrant colostomy with decompressed entering and exiting loops of transverse colon slightly limiting evaluation. Cluster of mildly thickened small bowel loops right lower quadrant - probable mild focal enteritis. Hazy mesentery mid abdomen - chronic finding versus mild mesenteric panniculitis. Prominent prostate. Chronic osseous findings as described in body of the report. Electronically signed by: Mary Jane Lawler MD 04/24/2020 1:56 AM CDT
[2020-04-24] MEDS ORDERED: DEXAMETHASONE INJ 4 MG/ML VIAL IV ONE (01:59)
[2020-04-24 02:52] VITALS: BP 143/82; TEMP 98; O2SAT 93
== END 2020-04-24 02:48 ==
LOC: ER 00:15
DX: K92.2 Gastrointestinal hemorrhage, unspecified (principal); K31.6 Fistula of stomach and duodenum; Z93.3 Colostomy status; Z79.01 Long term (current) use of anticoagulants; Z87.19 Personal history of other diseases of the digestive system
CPT/HCPCS: 74177; 80053; 82270; 85025; 85610; 85730; J1100; J7040